=== PATIENT | female | born 1955 | race Caucasian/White ===

== ENCOUNTER 2018-08-26 03:57 | Inpatient (IN) | payer MEDICAID ==
[~2018-08-26] VITALS: Ht 157.5 cm; Wt 135.0 kg
--- NOTE | ~2018-08-26 | MORECARE ---
CASE MANAGEMENT DISCHARGE SUMMARY PATIENT: AMISHA CORTEZ UNIT: [id number] ADM DATE: 08/26/18 AGE: 62 : 55 SEX: F ROOM/BED: D.7483 AUTHOR: RICKDOC PHYSICIAN: REFERRING PHYSICIAN: MYRTLE MENG MD DATE OF SERVICE: 08/30/18 Discharge Plan Patient Name: AMISHA CORTEZ Facility: [facility]:[place] : 1955 Planned Disposition: Home with Home Health Anticipated Discharge Date: 08/29/18 Discharge Date: 08/29/2018 Expected LOS: 3 Initial Reviewer: [email or web address] Initial Review Date: 08/26/2018 Generated: 08/30/18 3:36 pm Comments DCP- Discharge Planning Updated by [email or web address]: Mojgan Ríos on 08/29/18 7:[address] Patient Name: AMISHA CORTEZ Admission Status: ER Accout number: [id number] Admission Date: 08-26-2018 : 1955 Admission Diagnosis:SHORTNESS OF BREATH Attending: MYRTLE MENG Current LOS: 3 Anticipated DC Date: 08-29-2018 Planned Disposition: Home with Home Health Primary Insurance: MEDICAID [place] Discharge Planning Comments: LATE ENTRY 1430 AILYN SPOKE WITH THE PATIENT. SHE GAVE PERMISSION TO SPEAK WITH HER DAUGHTER CIRA, WHEN SHE ARRIVED. THE FAMILY WANTS PATIENT TO GO TO ACUTE REHAB IN [place] AT [facility]. TC TO [place] AND SPOKE WITH BERTRAM. ADMISSION'S PERSON IS NOT AVAILABLE TODAY. PATIENT HAS MEDICAID. MEDICAID DOES NOT COVER ACUTE REHAB . PATIENT HAS PORTABLE OXYGEN AT HOME AND STATIONARY UNIT.SHE LIVES IN [place], [place]. THE DAUGHTER LIVES IN [place]. CM SPOKE WITH THE DTR ON HER ARRIVAL. EXPLAINED COVERAGE W/ MEDICAID. THEY DO NOT WANT TO CONSIDER A SKILLED FACILITY FOR REHAB. PATIENT AND FAMILY DECIDED ON HOME W/ HOME HEALTH. PATIENT HAS ASSISTED LIVING ADMINISTRATOR ASSISTANCE 3 DAYS A WEEK FROM [facility]. WILL NEED TO CONTACT IN THE AM TO HAVE THEM GET AN ORDER FROM [facility] FOR H/H SERVICES. PATIENT STATES SHE HAS HAD PHYSICAL THERAPY WITH THEM PREVIOUSLY. [facility] IS THE DME PROVIDER FOR HOME O2 UNITS AND SUPPLIES. PATIENT WILL BE DISCHARGE TO HOME VIA AMBULANCE. SHE CANNOT COMFORTABLE TRANSPORT IN SITTING POSITION FOR 2.5- 3 HRS. SHE HAS NASAL OXYGEN AT 3-4 LITERS VIA N/C. PCS FORM COMPLETED. TC TO [employer] TO ADVISE OF OUT OF TOWN TRANSPORT. JUAN PRIMARY NURSE PROVIDED [facility]/ [facility] TO CALL WHEN THE PATIENT IS READY TO BE DISCHARGED. FAMILY AT THE BEDSIDE AWAITING DISCHARGE INSTRUCTIONS. WHEN DTR ARRIVED, SHE STATED THE PATIENT LIVED ALONE. SHE HAD BEEN STAYING WITH THE DAUGHTER WHEN SHE WAS AIRFLIGHTED TO [facility]. Salesperson Furniture: Mojgan Ríos DCPIA - Discharge Planning Initial Assessment Updated by [email or web address]: Mojgan Ríos on 08/29/18 7:57 pm * Is the patient Alert and Oriented? Yes * PCP [facility] * Pharmacy [facility] * Preadmission Environment Home Alone * ADLs Partial Dependent * Partial ADLs (Assistance needed) Bathing Dressing * Equipment Oxygen * List name and contact numbers for known caregivers / representatives who currently or will assist patient after discharge: LUCÍA CORTEZ- [phone] * Verbal permission to speak to the caregivers and representatives has been obtained from the patient. Yes * Community resources currently utilized Home Health * Please name any agencies selected above. HAS ASSISTED LIVING ADMINISTRATOR SERVICES W/ [facility] * Additional services required to return to the preadmission environment? Yes * Can the patient safely return to the preadmission environment? Yes * Has this patient been hospitalized within the prior 30 days at any hospital? Yes Last DP export: 08/30/18 8:14 Patient Name: AMISHA CORTEZ Page 32884 at 1436 All edits/amendments must be made on the electronic document DICTATION DATE: 08/30/18 1435 SPECIALTY TRANSFORMER ASSEMBLER: JIMENA 08/30/18 1435 RPT#: [id number] DC DATE:08/29/18 STATUS: DIS IN [facility] [address] [place] [address] END OF REPORT
--- NOTE | ~2018-08-26 | MORECARE ---
CASE MANAGEMENT DISCHARGE SUMMARY PATIENT: AMISHA CORTEZ UNIT: [id number] ADM DATE: 08/26/18 AGE: 62 : 55 SEX: F ROOM/BED: D.0 AUTHOR: MIGUEL CABRERA PHYSICIAN: REFERRING PHYSICIAN: MYRTLE MENG MD DATE OF SERVICE: 08/29/18 Discharge Plan Patient Name: AMISHA CORTEZ Facility: [facility]:[place] : 1955 Planned Disposition: Home with Home Health Anticipated Discharge Date: 08/29/18 Discharge Date: 08/29/2018 Expected LOS: 3 Initial Reviewer: [email or web address] Initial Review Date: 08/26/2018 Generated: 08/29/18 9:00 pm DCPIA - Discharge Planning Initial Assessment Updated by [id number]: Mojgan Ríos on 08/29/18 7:57 pm * Is the patient Alert and Oriented? Yes * PCP [facility] * Pharmacy [facility] * Preadmission Environment Home Alone * ADLs Partial Dependent * Partial ADLs (Assistance needed) Bathing Dressing * Equipment Oxygen * List name and contact numbers for known caregivers / representatives who currently or will assist patient after discharge: LUCÍA CORTEZ- [phone] * Verbal permission to speak to the caregivers and representatives has been obtained from the patient. Yes * Community resources currently utilized Home Health * Please name any agencies selected above. HAS WOODWORKING SHOP HAND SERVICES W/ [facility] * Additional services required to return to the preadmission environment? Yes * Can the patient safely return to the preadmission environment? Yes * Has this patient been hospitalized within the prior 30 days at any hospital? Yes Last DP export: 08/29/18 6:48 Patient Name: AMISHA OCRTEZ Page 55415 at 2000 All edits/amendments must be made on the electronic document DICTATION DATE: 08/29/181999 ATOMIC PHYSICS PROFESSOR: JIMENA 08/29/181999 RPT#: [id number] DC DATE:08/29/18 STATUS: DIS IN [facility] [address] [place] [address] END OF REPORT
--- NOTE | ~2018-08-26 | MORECARE ---
CASE MANAGEMENT DISCHARGE SUMMARY PATIENT: AMISHA CORTEZ UNIT: [id number] ADM DATE: 08/26/18 AGE: 62 : 55 SEX: F ROOM/BED: D.6434 AUTHOR: RICKDOC PHYSICIAN: REFERRING PHYSICIAN: MYRTLE MENG MD DATE OF SERVICE: 08/29/18 Discharge Plan Patient Name: AMISHA CORTEZ Facility: [facility]:[place] : 1955 Planned Disposition: Home with Home Health Anticipated Discharge Date: 08/29/18 Discharge Date: 08/29/2018 Expected LOS: 3 Initial Reviewer: [email or web address] Initial Review Date: 08/26/2018 Generated: 08/29/18 9:19 pm Comments DCP- Discharge Planning Updated by [email or web address]: Mojgan Ríos on 08/29/18 7:[address] Patient Name: AMISHA CORTEZ Admission Status: ER Accout number: [id number] Admission Date: 08-26-2018 : 1955 Admission Diagnosis:SHORTNESS OF BREATH Attending: MYRTLE MENG Current LOS: 3 Anticipated DC Date: 08-29-2018 Planned Disposition: Home with Home Health Primary Insurance: MEDICAID [place] Discharge Planning Comments: LATE ENTRY 1430 AILYN SPOKE WITH THE PATIENT. SHE GAVE PERMISSION TO SPEAK WITH HER DAUGHTER CIRA, WHEN SHE ARRIVED. THE FAMILY WANTS PATIENT TO GO TO ACUTE REHAB IN [place] AT [facility]. TC TO [place] AND SPOKE WITH BERTRAM. ADMISSION'S PERSON IS NOT AVAILABLE TODAY. PATIENT HAS MEDICAID. MEDICAID DOES NOT COVER ACUTE REHAB . PATIENT HAS PORTABLE OXYGEN AT HOME AND STATIONARY UNIT.SHE LIVES IN [place], [place]. THE DAUGHTER LIVES IN [place]. CM SPOKE WITH THE DTR ON HER ARRIVAL. EXPLAINED COVERAGE W/ MEDICAID. THEY DO NOT WANT TO CONSIDER A SKILLED FACILITY FOR REHAB. PATIENT AND FAMILY DECIDED ON HOME W/ HOME HEALTH. PATIENT HAS ARCHITECTURAL DESIGNER ASSISTANCE 3 DAYS A WEEK FROM [facility]. WILL NEED TO CONTACT IN THE AM TO HAVE THEM GET AN ORDER FROM [facility] FOR H/H SERVICES. PATIENT STATES SHE HAS HAD PHYSICAL THERAPY WITH THEM PREVIOUSLY. [facility] IS THE DME PROVIDER FOR HOME O2 UNITS AND SUPPLIES. PATIENT WILL BE DISCHARGE TO HOME VIA AMBULANCE. SHE CANNOT COMFORTABLE TRANSPORT IN SITTING POSITION FOR 2.5- 3 HRS. SHE HAS NASAL OXYGEN AT 3-4 LITERS VIA N/C. PCS FORM COMPLETED. TC TO [email or web address] TO ADVISE OF OUT OF TOWN TRANSPORT. JUAN PRIMARY NURSE PROVIDED W/ [facility] NUMBER TO CALL WHEN THE PATIENT IS READY TO BE DISCHARGED. FAMILY AT THE BEDSIDE AWAITING DISCHARGE INSTRUCTIONS. WHEN DTR ARRIVED, SHE STATED THE PATIENT LIVED ALONE. SHE HAD BEEN STAYING WITH THE DAUGHTER WHEN SHE WAS AIRFLIGHTED TO [facility]. Account Assistant: Mojgan Ríos DCPIA - Discharge Planning Initial Assessment Updated by [email or web address]: Mojgan Ríos on 08/29/18 7:57 pm * Is the patient Alert and Oriented? Yes * PCP [facility] * Pharmacy [facility] * Preadmission Environment Home Alone * ADLs Partial Dependent * Partial ADLs (Assistance needed) Bathing Dressing * Equipment Oxygen * List name and contact numbers for known caregivers / representatives who currently or will assist patient after discharge: LUCÍA CORTEZ- [phone] * Verbal permission to speak to the caregivers and representatives has been obtained from the patient. Yes * Community resources currently utilized Home Health * Please name any agencies selected above. HAS ARCHITECTURAL DESIGNER SERVICES W/ [facility] * Additional services required to return to the preadmission environment? Yes * Can the patient safely return to the preadmission environment? Yes * Has this patient been hospitalized within the prior 30 days at any hospital? Yes Last DP export: 08/29/18 7:00 Patient Name: AMISHA CORTEZ Page 52742 at 2019 All edits/amendments must be made on the electronic document DICTATION DATE: 08/29/18 2018 MORTGAGE ORIGINATOR: JIMENA 08/29/18 2018 RPT#: [id number] DC DATE:08/29/18 STATUS: DIS IN [facility] [address] [place] [address] END OF REPORT
--- NOTE | ~2018-08-26 | MORECARE ---
CASE MANAGEMENT DISCHARGE SUMMARY PATIENT: AMISHA CORTEZ UNIT: [id number] ADM DATE: 08/26/18 AGE: 62 : 55 SEX: F ROOM/BED: D.2120 AUTHOR: MIGUEL CABRERA PHYSICIAN: REFERRING PHYSICIAN: MYRTLE MENG MD DATE OF SERVICE: 08/29/18 Discharge Plan Patient Name: AMISHA CORTEZ [facility] [facility] 1955 Planned Disposition: Home with Home Health Anticipated Discharge Date: 08/29/18 Discharge Date: 08/29/2018 Expected LOS: 3 Initial Reviewer: [email or web address] Initial Review Date: 08/26/2018 Generated: 08/29/18 8:48 pm Patient Name: AMISHA CORTEZ Page 27833 at 1948 All edits/amendments must be made on the electronic document DICTATION DATE: 08/29/181946 SUPERVISOR INSULATION: JIMENA 08/29/181946 RPT#: [id number] DC DATE:08/29/18 STATUS: DIS IN [facility] [address] [place] [address] END OF REPORT
--- NOTE | ~2018-08-26 | MORECARE ---
CASE MANAGEMENT DISCHARGE SUMMARY PATIENT: AMISHA CORTEZ UNIT: [id number] ADM DATE: 08/26/18 AGE: 62 : 55 SEX: F ROOM/BED: D.7589 AUTHOR: RICKDOC PHYSICIAN: REFERRING PHYSICIAN: MYRTLE MENG MD DATE OF SERVICE: 08/30/18 Discharge Plan Patient Name: AMISHA CORTEZ Facility: [facility]:[place] : 1955 Planned Disposition: Home with Home Health Anticipated Discharge Date: 08/29/18 Discharge Date: 08/29/2018 Expected LOS: 3 Initial Reviewer: [email or web address] Initial Review Date: 08/26/2018 Generated: 08/30/18 10:14 am Comments DCP- Discharge Planning Updated by [email or web address]: Mojgan Ríos on 08/29/18 7:[address] Patient Name: AMISHA CORTEZ Admission Status: ER Accout number: [id number] Admission Date: 08-26-2018 : 1955 Admission Diagnosis:SHORTNESS OF BREATH Attending: MYRTLE MENG Current LOS: 3 Anticipated DC Date: 08-29-2018 Planned Disposition: Home with Home Health Primary Insurance: MEDICAID [place] Discharge Planning Comments: LATE ENTRY 1430 AILYN SPOKE WITH THE PATIENT. SHE GAVE PERMISSION TO SPEAK WITH HER DAUGHTER CIRA, WHEN SHE ARRIVED. THE FAMILY WANTS PATIENT TO GO TO ACUTE REHAB IN [place] AT [facility]. TC TO [place] AND SPOKE WITH BERTRAM. ADMISSION'S PERSON IS NOT AVAILABLE TODAY. PATIENT HAS MEDICAID. MEDICAID DOES NOT COVER ACUTE REHAB . PATIENT HAS PORTABLE OXYGEN AT HOME AND STATIONARY UNIT.SHE LIVES IN [place], [place]. THE DAUGHTER LIVES IN [place]. CM SPOKE WITH THE DTR ON HER ARRIVAL. EXPLAINED COVERAGE W/ MEDICAID. THEY DO NOT WANT TO CONSIDER A SKILLED FACILITY FOR REHAB. PATIENT AND FAMILY DECIDED ON HOME W/ HOME HEALTH. PATIENT HAS MEDICAL RECORDS MANAGER ASSISTANCE 3 DAYS A WEEK FROM [facility]. WILL NEED TO CONTACT IN THE AM TO HAVE THEM GET AN ORDER FROM [facility] FOR H/H SERVICES. PATIENT STATES SHE HAS HAD PHYSICAL THERAPY WITH THEM PREVIOUSLY. [facility] IS THE DME PROVIDER FOR HOME O2 UNITS AND SUPPLIES. PATIENT WILL BE DISCHARGE TO HOME VIA AMBULANCE. SHE CANNOT COMFORTABLE TRANSPORT IN SITTING POSITION FOR 2.5- 3 HRS. SHE HAS NASAL OXYGEN AT 3-4 LITERS VIA N/C. PCS FORM COMPLETED. TC TO [employer] TO ADVISE OF OUT OF TOWN TRANSPORT. JUAN PRIMARY NURSE PROVIDED W/ [facility] NUMBER TO CALL WHEN THE PATIENT IS READY TO BE DISCHARGED. FAMILY AT THE BEDSIDE AWAITING DISCHARGE INSTRUCTIONS. WHEN DTR ARRIVED, SHE STATED THE PATIENT LIVED ALONE. SHE HAD BEEN STAYING WITH THE DAUGHTER WHEN SHE WAS AIRFLIGHTED TO [facility]. Freelance Art Director: Mojgan Ríos DCPIA - Discharge Planning Initial Assessment Updated by [email or web address]: Mojgan Ríos on 08/29/18 7:57 pm * Is the patient Alert and Oriented? Yes * PCP [facility] * Pharmacy [facility] * Preadmission Environment Home Alone * ADLs Partial Dependent * Partial ADLs (Assistance needed) Bathing Dressing * Equipment Oxygen * List name and contact numbers for known caregivers / representatives who currently or will assist patient after discharge: LUCÍA CORTEZ- [phone] * Verbal permission to speak to the caregivers and representatives has been obtained from the patient. Yes * Community resources currently utilized Home Health * Please name any agencies selected above. HAS MEDICAL RECORDS MANAGER SERVICES W/ [facility] * Additional services required to return to the preadmission environment? Yes * Can the patient safely return to the preadmission environment? Yes * Has this patient been hospitalized within the prior 30 days at any hospital? Yes Last DP export: 08/29/18 7:19 Patient Name: AMISHA CORTEZ Page 67781 at 0914 All edits/amendments must be made on the electronic document DICTATION DATE: 08/30/18912 COLLEGE DIRECTOR: JIMENA 08/30/18912 RPT#: [id number] DC DATE:08/29/18 STATUS: DIS IN [facility] [address] [place] [address] END OF REPORT
[2018-08-26] MEDS ORDERED: MYSOLINE 50 MG50 MG PO (04:04)
[2018-08-26] MEDS ORDERED: CELEBREX200 MG (04:04)
[2018-08-26] MEDS ORDERED: BAYER CHEWABLE81 MG PO (04:04)
[2018-08-26] MEDS ORDERED: VITAMIN B-121000 MCG IM (04:05)
[2018-08-26] MEDS ORDERED: GLYBURIDE5 M1 PO (04:06)
[2018-08-26] MEDS ORDERED: CELEXA20 MG PO (04:06)
[2018-08-26] MEDS ORDERED: NEURONTIN 300300 MG PO (04:06)
[2018-08-26] MEDS ORDERED: CYCLOBENZAPRINE10 MG PO (04:06)
[2018-08-26] MEDS ORDERED: NORCO 10-325 TA1 TAB PO (04:07)
[2018-08-26] MEDS ORDERED: ZESTRIL40 MG PO (04:07)
[2018-08-26] MEDS ORDERED: HUMULIN R100 U/ML SC (04:07)
[2018-08-26] MEDS ORDERED: SINGULAIR10 MG PO (04:08)
[2018-08-26] MEDS ORDERED: K-DUR20 MEQ PO (04:08)
[2018-08-26] MEDS ORDERED: LASIX40 MG PO (04:08)
[2018-08-26] MEDS ORDERED: ZOCOR5 MG (04:09)
[2018-08-26] MEDS ORDERED: ALBUTEROL SULF8.5 GM INH (04:09)
[2018-08-26] MEDS ORDERED: CEFUROXIME500 MG PO (04:10)
[2018-08-26] MEDS ORDERED: METOPROLOL TART25 MG PO (04:10)
[2018-08-26] MEDS ORDERED: NORVASC5 MG PO (04:10)
[2018-08-26] MEDS ORDERED: MONODOX100 MG PO (04:11)
[2018-08-26] MEDS ORDERED: ABILIFY10 MG PO (04:11)
[2018-08-26] MEDS ORDERED: METOLAZONE2.5 MG PO (04:11)
[2018-08-26 06:14] VITALS: BP 109/58
[2018-08-26 06:22] VITALS: BMI 53.5
[2018-08-26 07:49] VITALS: BP 104/74
[2018-08-26 11:33] VITALS: BP 112/57
[2018-08-26 12:08] LABS: HEMATOCRIT 35.1 % (36.0-48.0); HEMOGLOBIN 10.9 g/dL (12-16); MCH 27.3 pg (26.0-34.0); MCHC 31.1 g/dL (31.0-37.0); MCV 87.8 fL (80.0-100.0); MEAN PLATELET VOLUME 9.6 fL (7.4-10.4); PLATELET COUNT 189 10x3/uL (130-400); RDW 15.4 % (11.5-14.5); WBC 8.1 10x3/uL (4.8-10.8)
[2018-08-26 12:13] LABS: BASOPHILS 0 % (0-2); EOSINOPHILS 0.1 % (0-7); IMMATURE GRANULOCYTES 0.1 % (0-5); LYMPHOCYTES 4.7 % (15-50); MONOCYTES 0.6 % (2-11); NEUTROPHILS 94.5 % (40-80)
[2018-08-26 12:32] LABS: ALBUMIN 3.2 g/dL (3.4-5.0); ANION GAP 11.6 mmol/L (8-16); BILIRUBIN - TOTAL 0.75 mg/dL (0.2-1.3); CALCIUM 8.8 mg/dL (8.5-10.1); CARBON DIOXIDE 31.8 mmol/L (21.0-32.0); CREATININE - SERUM 1.2 mg/dL (0.6-1.3); MAGNESIUM - SERUM 2.2 mg/dL (1.8-2.4); POTASSIUM - SERUM 4.4 mmol/L (3.5-5.1); PROTEIN - SERUM 8.2 g/dL (6.4-8.2)
[2018-08-26 12:42] LABS: APTT 30.9 SECONDS (22.8-39.4); INR 1.09 (0.85-1.17); PROTIME 13.7 SECONDS (11.6-15.0)
[2018-08-26 12:43] LABS: D-DIMER-QUANTITATIVE 1.31 ug/mLFEU (0.20-0.54)
[2018-08-26 13:00] VITALS: Ht 157.5 cm; Wt 135.0 kg
[2018-08-26 13:39] LABS: % SATURATION 7 % (15-55); IRON 30 ug/dl (35-150); TOTAL IRON BIND CAPACITY 406 ug/dl (260-445); UNSAT IRON BIND CAPACITY 376 ug/dl (150-375)
[2018-08-26 15:57] VITALS: BP 107/51
[2018-08-26 20:52] VITALS: BP 110/58
[2018-08-27] VITALS: BP 108/44
[2018-08-27 04:00] VITALS: BP 95/53
[2018-08-27 07:23] LABS: APPEARANCE CLEAR (CLEAR); BILIRUBIN NEGATIVE (NEGATIVE); COLOR YELLOW (YELLOW); EPITHELIAL CELLS 0-5 /hpf (0-5); GLUCOSE NEGATIVE (NEGATIVE); KETONE NEGATIVE (NEGATIVE); NITRITE NEGATIVE (NEGATIVE); PROTEIN NEGATIVE (NEGATIVE); RED CELLS - URINE 0-5 /hpf (0-5); SPECIFIC GRAVITY 1.015 (1.005-1.020); UROBILINOGEN NORMAL (NORMAL); WHITE CELLS - URINE NSEEN /hpf (0-5)
[2018-08-27 07:31] LABS: FOLATE (FOLIC ACID) - SERUM >20.0 ng/mL (>3.0)
[2018-08-27 09:00] VITALS: BP 97/36
[2018-08-27 13:29] VITALS: BP 119/59
[2018-08-27 16:06] VITALS: BP 113/47
[2018-08-27 21:22] VITALS: BP 102/52
[2018-08-28 02:11] VITALS: BP 109/64
[2018-08-28 06:09] LABS: BASOPHILS 0.3 % (0-2); EOSINOPHILS 1.6 % (0-7); HEMATOCRIT 32.9 % (36.0-48.0); HEMOGLOBIN 10.2 g/dL (12-16); IMMATURE GRANULOCYTES 0.2 % (0-5); MCH 27.5 pg (26.0-34.0); MCV 88.7 fL (80.0-100.0); MEAN PLATELET VOLUME 10.4 fL (7.4-10.4); MONOCYTES 10.9 % (2-11); PLATELET COUNT 222 10x3/uL (130-400); RBC 3.71 10x6/uL (4.00-5.40); RDW 15.9 % (11.5-14.5)
[2018-08-28 06:25] LABS: WBC 10.2 10x3/uL (4.8-10.8)
[2018-08-28 06:27] LABS: ANION GAP 8.7 mmol/L (8-16); C-REACTIVE PROTEIN 2.5 mg/dL (0.0-0.9); CALCIUM 8.4 mg/dL (8.5-10.1); CARBON DIOXIDE 36.3 mmol/L (21.0-32.0); CREATININE - SERUM 1.1 mg/dL (0.6-1.3); MAGNESIUM - SERUM 2.2 mg/dL (1.8-2.4); PHOSPHOROUS 4.5 mg/dL (2.5-4.9)
[2018-08-28 06:40] VITALS: BP 110/55
[2018-08-28 08:53] VITALS: BP 121/102
[2018-08-28 12:10] VITALS: BP 122/57
[2018-08-28 15:38] VITALS: BP 115/98
[2018-08-28 20:30] VITALS: BP 111/50
[2018-08-29 00:30] VITALS: BP 118/64
[2018-08-29 04:30] VITALS: BP 94/50
[2018-08-29 05:59] LABS: ANION GAP 6.2 mmol/L (8-16); CALCIUM 8.6 mg/dL (8.5-10.1); CARBON DIOXIDE 37.5 mmol/L (21.0-32.0); CREATININE - SERUM 1.1 mg/dL (0.6-1.3); POTASSIUM - SERUM 3.7 mmol/L (3.5-5.1)
[2018-08-29 06:07] LABS: BASOPHILS 0.3 % (0-2); EOSINOPHILS 5.1 % (0-7); HEMOGLOBIN 11.1 g/dL (12-16); IMMATURE GRANULOCYTES 0.1 % (0-5); LYMPHOCYTES 17.3 % (15-50); MCH 27.3 pg (26.0-34.0); MCHC 30.8 g/dL (31.0-37.0); MCV 88.5 fL (80.0-100.0); MONOCYTES 10.8 % (2-11); NEUTROPHILS 66.4 % (40-80); PLATELET COUNT 252 10x3/uL (130-400); RBC 4.07 10x6/uL (4.00-5.40); RDW 15.9 % (11.5-14.5)
[2018-08-29 06:10] LABS: WBC 7.1 10x3/uL (4.8-10.8)
[2018-08-29 07:59] VITALS: BP 105/60
[2018-08-29] MEDS ORDERED: LISINOPRIL10 MG PO (10:47)
[2018-08-29] MEDS ORDERED: VIBRAMYCIN 100100 MG PO (10:47)
[2018-08-30 12:12] LABS: IMMUNOGLOBULIN A 174 mg/dL (87-352); IMMUNOGLOBULIN G 1420 mg/dL (700-1600)
[2018-08-30 14:18] LABS: ANA REFLEX - DIRECT Negative (Negative)
[2018-09-01 03:11] LABS: MYCOPLASMA PNEUMO IGG 644 U/mL (0-99)
[2018-09-01 15:25] LABS: ANCA - ANTIMYELOPEROXIDASE <9.0 U/mL (0.0-9.0); ANCA - ANTIPROTEINASE 3 <3.5 U/mL (0.0-3.5); ANCA - ATYPICAL <1:20 titer (Neg:<1:20); ANCA - CYTOPLASMIC <1:20 titer (Neg:<1:20); ANCA - PERINUCLEAR <1:20 titer (Neg:<1:20)
[2018-09-01 21:08] LABS: IMMUNOGLOBULIN E 371 IU/mL (0-100)
== END 2018-08-29 16:04 | disposition home health service (06) | DRG 291 ==
LOC: EDBD 03:57 → D.ER 03:57 → D.M2 04:28 → D.EDHOLD 04:28 → D.M2 05:50
PROVIDERS: Internal Medicine Nephrology; Internal Medicine Pulmonary Disease
PROC: 5A09457 Assistance with Respiratory Ventilation, 24-96 Consecutive Hours, Continuous Positive Airway Pressure (ICD-10-PCS; principal; 2018-08-26)
DX: I11.0 Hypertensive heart disease with heart failure (principal); J18.9 Pneumonia, unspecified organism; J96.22 Acute and chronic respiratory failure with hypercapnia; J96.21 Acute and chronic respiratory failure with hypoxia; I50.31 Acute diastolic (congestive) heart failure; J44.0 Chronic obstructive pulmonary disease with (acute) lower respiratory infection; J44.1 Chronic obstructive pulmonary disease with (acute) exacerbation; J98.11 Atelectasis; N17.9 Acute kidney failure, unspecified; Z68.43 Body mass index [BMI] 50.0-59.9, adult; E78.5 Hyperlipidemia, unspecified; E11.9 Type 2 diabetes mellitus without complications; F32.9 Major depressive disorder, single episode, unspecified; J30.9 Allergic rhinitis, unspecified; G25.0 Essential tremor; D64.9 Anemia, unspecified; E66.01 Morbid (severe) obesity due to excess calories; G47.33 Obstructive sleep apnea (adult) (pediatric); Z87.891 Personal history of nicotine dependence

== ENCOUNTER 2019-04-12 15:48 | Inpatient (IN) | payer MEDICAID ==
[~2019-04-12] VITALS: Ht 157.5 cm; Wt 120.7 kg
--- NOTE | ~2019-04-12 | ST ---
PATIENT:AMISHA CORTEZ MEDICAL RECORD: [id number] SEX: F LOCATION:D. D212 ORDER #: ADMISSION DATE: 04/12/19 AGE OF PATIENT: 63 REFERRING PHYSICIAN: INTERPRETING PHYSICIAN: THANIA MAY MD DATE OF SERVICE: 04/13/2019 Nuclear Stress Test INDICATION: Angina and coronary artery disease. PROCEDURE: The patient was exercised on standard Lexiscan protocol with 33 mCi of sestamibi injected at peak stress, 13 mCi were then used previously for rest images. FINDINGS: Gated SPECT reveals a preserved ejection fraction of 58%. However, there is decreased thickening and brightening throughout the apical segments. SPECT imaging Cardiolite was used as myocardial perfusion agent. There is a fixed perfusion defect at the apex. However, there is no reversibility of the remaining segments with homogeneous uptake at rest and stress. OVERALL IMPRESSION: This is minimally abnormal nuclear stress test, only showing a fixed perfusion defect at the apex. No reversible ischemia. Preserved ejection fraction of 58%. Center medical management on treatment of the dysrhythmia. TRANSINT:[id number] Voice Confirmation ID: [id number] DOCUMENT ID: [id number] THANIA MAY MD CC: [id number] DICTATION DATE: 04/13/19 1239 LINUX SERVER ADMINISTRATOR: 04/14/19 0514 DIS IN 04/13/19 [facility] [address] [place] [id number]
--- NOTE | ~2019-04-12 | DS ---
PATIENT:AMISHA HOLMAN :55 MEDICAL RECORD: [id number] DISCHARGE SUMMARY ADMISSION DATE: 04/12/19 DISCHARGE DATE: 04/13/19 DATE OF SERVICE: 04/13/2019. DISCHARGE DIAGNOSES: 1. Paroxysmal atrial fibrillation. 2. Hyperlipidemia. 3. Insulin-dependent diabetes. 4. Shortness of breath, dyspnea on exertion. HOSPITAL COURSE: Mrs. Holman presents with atrial fibrillation. She was admitted from the office, underwent cardiac workup. Echocardiogram was with normal ejection fraction. She did have mild mitral regurgitation, left atrial enlargement. She as well had a nuclear stress test that was overall normal. She was started on sotalol. With the sotalol, she had no further atrial fibrillation. Discharged home to continue the sotalol, discontinue the digoxin. We will follow up with her in approximately 1 month. TRANSINT:[id number] Voice Confirmation ID: [id number] DOCUMENT ID: [id number] THANIA MAY MD CC: [id number] DICTATION DATE: 04/13/191705 POLITICAL ANTHROPOLOGIST: 04/14/19 0914 DIS IN 04/13/19 [facility] [address] [place] [address]
[~2019-04-12 15:48] MED LIST: ABILIFY10 MG PO; ALBUTEROL SULF8.5 GM INH; BAYER CHEWABLE81 MG PO; CEFUROXIME500 MG PO; CELEBREX200 MG; CELEXA20 MG PO; CYCLOBENZAPRINE10 MG PO; GLYBURIDE5 M1 PO; HUMULIN R100 U/ML SC; K-DUR20 MEQ PO; LASIX40 MG PO; LISINOPRIL10 MG PO; METOLAZONE2.5 MG PO; METOPROLOL TART25 MG PO; MONODOX100 MG PO; MYSOLINE 50 MG50 MG PO; NEURONTIN 300300 MG PO; NORCO 10-325 TA1 TAB PO; NORVASC5 MG PO; SINGULAIR10 MG PO; VIBRAMYCIN 100100 MG PO; VITAMIN B-121000 MCG IM; ZESTRIL40 MG PO; ZOCOR5 MG
--- NOTE | 2019-04-12 16:20 | NUR ---
PATIENT FOUND SITTING IN ROOM AT 1620. PATIENT STATES SHE ARRIVED TO ROOM ABOUT 1610. PATIENT WAS A DIRECT ADMIT FROM OFFICE. NO IV ACCESS. PATIENT STATES THAT SHE WEARS HOME OXYGEN AT NIGHT 1L/NC, NO OXYGEN DURING THE DAY. AWAITING FOR OFFICE TO FAX OVER PATIENTS MEDICATION LIST. PATIENT ORIENTED TO ROOM. CALL LIGHT WIHTIN REACH. NO DISTRESS AT THIS TIME.
--- NOTE | 2019-04-12 17:00 | NUR ---
20 GAUGE IV PLACED TO RIGHT HAND X 1 STICK VIA SLIVER LAPPER, FROYLAN ARNETT. GOOD BLOOD RETURN, EASY FLUSH. TOLERATED IV PLACEMENT WELL. TAPED, DATED AND SECURED.
[2019-04-12 17:23] LABS: BASOPHILS 0.3 % (0-2); EOSINOPHILS 3.4 % (0-7); HEMATOCRIT 41.3 % (36.0-48.0); HEMOGLOBIN 13.5 g/dL (12-16); IMMATURE GRANULOCYTES 0.1 % (0-5); LYMPHOCYTES 18.5 % (15-50); MCH 29.2 pg (26.0-34.0); MCHC 32.7 g/dL (31.0-37.0); MCV 89.2 fL (80.0-100.0); MEAN PLATELET VOLUME 9.8 fL (7.4-10.4); NEUTROPHILS 69.7 % (40-80); RBC 4.63 10x6/uL (4.00-5.40); RDW 14.5 % (11.5-14.5); WBC 7.7 10x3/uL (4.8-10.8)
[2019-04-12 17:44] LABS: PLATELET COUNT 201 10x3/uL (130-400)
[2019-04-12 17:49] LABS: CALC OSMOLALITY 282 mosm/kg (275-300); CALCIUM 9.2 mg/dL (8.5-10.1); CARBON DIOXIDE 30.1 mmol/L (21.0-32.0); CHLORIDE - SERUM 104 mmol/L (98-107); GLUCOSE 112 mg/dL (74-106); POTASSIUM - SERUM 4.5 mmol/L (3.5-5.1); SODIUM 140 mmol/L (136-145); UREA NITROGEN 22 mg/dL (7-18); eGFR NON AFRICAN AMERICAN 59 mL/min (90-120)
[2019-04-12 17:57] LABS: TROPONIN-I < 0.017 ng/mL (0.000-0.060)
--- NOTE | 2019-04-12 18:25 | NUR ---
ASSISTED PATIENT ON AND OFF OF BSC. PATIENT DAUGTHER AT BEDSIDE. CALL LIGHT WITHIN REACH. NO DISTRESS.
--- NOTE | 2019-04-12 19:30 | NUR ---
REPORT RECIEVED AND ROUNDING COMPLETE. PATIENT SITTING ON THE SIDE OF HER BED TALKING ON HER CALL PHONE PATIENT STATED SHE HAS NO NEEDS AT THIS TIME CALL LIGHT WITHIN REACH BED IN LOWEST POSITION.
[2019-04-12 19:32] VITALS: BP 126/66; BMI 48.8
[2019-04-12 20:00] VITALS: BP 143/69
--- NOTE | 2019-04-12 23:22 | NUR ---
I have reviewed this patient and I concur with the Shift Assessment completed by the Licensed Practical Nurse today this shift.
[2019-04-13] VITALS: BP 114/55
[2019-04-13 04:30] VITALS: BP 102/53
--- NOTE | 2019-04-13 04:56 | NUR ---
I have reviewed this patient and I concur with the Shift Assessment completed by the Licensed Practical Nurse today this shift.
--- NOTE | 2019-04-13 07:26 | NUR ---
ROUNDING DONE WITH PATIENT HAVING NO NEEDS VOICED. NPO STATUS FOR STRESS TEST TODAY. ON HEART MONITOR SHOWING SB, HR 55. ON ROOM AIR. RIGHT HAND PIV SEEN WITH SALINE LOCK. GLASSES ON. OBESE. BSC IS FULL OF URINE FROM LAST SHIFT, EMPTIED. [place] HAT PLACED IN [facility] TO MEASURE. GENERLAIZED EDEMA SEEN TO ALL EXTREMITIES. BILATERAL BOTTOM OF FEET SEEN WITH PSORISIS STATES PATIENT. WILL MONITOR.
--- NOTE | 2019-04-13 08:13 | NUR ---
0803-TO GET RESTING PHASE OF STRESS TEST DONE.
--- NOTE | 2019-04-13 08:38 | NUR ---
RETURNS FROM XRAY.
[2019-04-13 09:47] VITALS: BP 121/57
--- NOTE | 2019-04-13 10:38 | NUR ---
TO RADIOLOGY TO FINISH STRESS TEST.
--- NOTE | 2019-04-13 11:20 | NUR ---
RETURNS FROM RADIOLOGY AND CAN NOW EAT.
[2019-04-13 13:27] VITALS: Ht 157.5 cm; Wt 120.7 kg
--- NOTE | 2019-04-13 15:59 | NUR ---
REFUSED SCD'S SHE IS UP AND DOWN TO THE RESTROOM.
--- NOTE | 2019-04-13 16:21 | NUR ---
PATIENT HAD A SHORT RUN A A FLUTTER, BACK INTO [place]. I CALLED KATHI MONTES APN TO LET HER KNOW OF THIS AND THAT THE PATIENT IS ON BETAPACE AND DID RECEIVE THE DOSE TODAY. SHE STATES THAT IF THE PATIENT IS BACK IN [place] AND CAN GET HER DOSE OF BETAPCE TONIGHT, THEN JUST WATCH.
--- NOTE | 2019-04-13 17:02 | NUR ---
DR MAY IN TO SEE PATIENT. HE IS MADE AWARE OF THE A FLUTTER.
[2019-04-13 17:47] VITALS: BP 140/91
[2019-04-13] MEDS ORDERED: BETAPACE 80 MG80 MG PO (17:47)
[2019-04-13 17:56] VITALS: BP 114/70
[2019-04-13] MEDS ORDERED: LASIX40 MG PO (17:59)
--- NOTE | 2019-04-13 18:07 | EC ---
PATIENT:AMISHA CORTEZ DATE OF SERVICE: 04/12/19 SEX: F MEDICAL RECORD: [id number] DATE OF : [birth year] LOCATION:D.M2 D.212 AGE OF PATIENT: 63 ADMISSION DATE: 04/12/19 REFERRING PHYSICIAN: INTERPRETING PHYSICIAN: THANIA LEE MD ECHOCARDIOGRAM REPORT ECHO CHARGES 4 ECHO COMPLETE Date: 04/13/19 CLINICAL DIAGNOSIS: CHF/ANGINA ECHOCARDIOGRAPHIC MEASUREMENTS (adult normal given) AC root (d.<3.7cm) 3.0 cm LV Septum d (<1.2 cm> 1.1 cm Valve Excursion 1.3 cm LV Septum (systole) 1.4 cm Left Atria (s.<4.0cm> 3.9 cm LVPW d(<1.2cm) 1.4 cm RV (d.<2.3cm) 3.9 cm LVPW (sytole) 1.7 cm LV diastole(<5.6CM) 4.5 cm MV E-F(>70mm/sec) cm LV systole 2.8 cm LVOT Diameter cm MV exc.(>10mm) 2.0 cm Est.ejection fraction (50-75%) % DOPPLER: LVIT cm/sec A 65.0 cm/sec E 111 cm/sec LA cm/sec RVSP 19 mmHg LVOT 110 cm/sec AOP1/2T m/s Asc. Ao 181 cm/sec RVOT 94 cm/sec RA cm/sec PA 126 cm/sec AV Gradient Peak 13.11mmHg AV Mean 7.65 mmHg AV Area 1.7 cm MV Gradient Peak 7.17 mmHg MV Mean 1.80 mmHg MV Area cm COMMENTS: Senior Housekeeper: Deirdre RAIN Owner Manager: 1 Dr. Lee TAPE# PACS Pericardial Effusion N DATE OF SERVICE: 04/13/2019 FINDINGS: 1. Left ventricular chamber size is within normal limits. Left ventricular systolic function is normal. Overall ejection fraction is estimated at 55%. 2. Left atrium, right atrium, and right ventricular chamber size is within normal limits. 3. Valvular structures have normal structure and motion. 4. Doppler interrogation reveals no significant valvular insufficiency or stenosis. Pulmonary systolic pressure is estimated at 19 mmHg. ECHOCARDIOGRAM REPORT [id number] AMISHA CORTEZ 5. No evidence of pericardial effusion or left ventricular thrombus. TRANSINT:[id number] Voice Confirmation ID: [id number] DOCUMENT ID: [id number] THANIA LEE MD at 1807 CC: [id number] DICTATION DATE: 04/13/19 1624 SUPERVISORY FORESTER: 04/13/19 1720 ADM IN [address] [place] [id number]
--- NOTE | 2019-04-13 18:29 | MORECARE ---
CASE MANAGEMENT DISCHARGE SUMMARY PATIENT: AMISHA CORTEZ UNIT: [id number] ADM DATE: 04/12/19 AGE: 63 : 55 SEX: F ROOM/BED: D.2125 AUTHOR: MIGUEL CABRERA PHYSICIAN: REFERRING PHYSICIAN: THANIA MAY MD DATE OF SERVICE: 04/13/19 Discharge Plan Patient Name: AMISHA CORTEZ [facility] [facility] 1955 Planned Disposition: Home with Home Health Anticipated Discharge Date: 04/13/19 Discharge Date: Expected LOS: 1 Initial Reviewer: [email or web address] Initial Review Date: 04/12/2019 Generated: 04/13/19 7:29 pm DCPIA - Discharge Planning Initial Assessment Updated by [email or web address]: Mojgan Ríos on 04/13/19 6:27 pm * Is the patient Alert and Oriented? Yes * PCP Jessenia Robb in [place], [place] * Pharmacy [facility] in [place] * Preadmission Environment Home with Family * ADLs Partial Dependent * Partial ADLs (Assistance needed) Bathing Medication Management * Equipment Bedside Commode Cane Nebulizer Oxygen Rolling Walker Shower Chair Walker * Other Equipment Patient has DME from [employer] oxygen at night, walker, wheelchair, nebulizer, bedside commode * List name and contact numbers for known caregivers / representatives who currently or will assist patient after discharge: Kalani jonas * Verbal permission to speak to the caregivers and representatives has been obtained from the patient. Yes * Community resources currently utilized Home Health * Please name any agencies selected above. [facility] in [place] * Additional services required to return to the preadmission environment? Yes * Can the patient safely return to the preadmission environment? Yes * Has this patient been hospitalized within the prior 30 days at any hospital? No Patient Name: AMISHA CORTEZ Page 39938 at 1829 All edits/amendments must be made on the electronic document DICTATION DATE: 04/13/191827 RETURN CLERK: JIMENA 04/13/191827 RPT#: [id number] DC DATE: STATUS: ADM IN [facility] [address] [place] [address] END OF REPORT
--- NOTE | 2019-04-13 18:35 | NUR ---
VERBAL AND WRITTEN DISCHARGE INSTRUCTIONS GIVEN TO DAUGHTER AND PATIENT. PER FROYLAN CAMACHONUCLEAR EQUIPMENT RESEARCH ENGINEER I WAS ABLE TO GIVE THE PATIENT 1 BETAPACE TO BE TAKEN FOR EVENING DOSE THEY LIVE IN [place] AND THEIR PHARMACY WAS ALREADY CLOSED. [place] LOCK REMOVED WITH CATH TIP INTACT.
--- NOTE | 2019-04-13 18:43 | MORECARE ---
CASE MANAGEMENT DISCHARGE SUMMARY PATIENT: AMISHA CORTEZ UNIT: [id number] ADM DATE: 04/12/19 AGE: 63 : 55 SEX: F ROOM/BED: D.6496 AUTHOR: RICK,DOC PHYSICIAN: REFERRING PHYSICIAN: THANIA MAY MD DATE OF SERVICE: 04/13/19 Discharge Plan Patient Name: AMISHA CORTEZ Facility: [facility]:[place] : 1955 Planned Disposition: Home with Home Health Anticipated Discharge Date: 04/13/19 Discharge Date: 04/13/2019 Expected LOS: 1 Initial Reviewer: [email or web address] Initial Review Date: 04/12/2019 Generated: 04/13/19 7:43 pm Comments DCP- Discharge Planning Updated by [email or web address]: Mojgan Ríos on 04/13/19 5:[address] 1800 CM ADVISED THAT THE PATIENT WAS BEING DISCHARGED TO HOME W/ HER DAUGHTER THIS PM. DISCHARGE PAPERWORK IS BEING PREPARED. CM WENT TO THE ROOM. PATIENT WAS IN THE BATHROOM. SHE ALLOWED THE CM TO SPEAK WITH HER DAUGHTER. THE DAUGHTER, KALANI, STATES HER MOTHER LIVES WITH HER IN [place]. SHE IS PROVIDING TRANSPORTATION TO HOME. CM ASK IF SHE WAS RECEIVING ANY HOME HEALTH SERVICES. THE DAUGHTER STATES SHE HAS [facility] FOR SERVICES. SHE WAS RECEIVING A HOME HEALTH AIDE FROM [facility] BUT THE DAUGHTER JUST COMPLETED THE PAPERWORK FOR A BINDERY MACHINE TENDER [facility] ON [address]. PATIENT HAS DME FROM [facility] [place], WALKER, WHEELCHAIR, NEBULIZER PCP- [facility]WOOD IN [facility] IN [place] CM OBTAINED SIGNATURE FOR HOME HEALTH TO CONTINUE W/ [facility] IN [place]. ONE SIGNED COPY TO THE DAUGHTER AND ONE SIGNED COPY TO THE HARD COVER CHART. THE ECHO REPORT IS THE ONLY MD NOTE AT THIS TIME.PATIENT WAS A DIRECT ADMIT. CM WILL CONTACT [facility] IN THE AM AND FAX DISCHARGE PAPERWORK. THE ONLY QUESTION THE DAUGHTER HAD WAS WHETHER HER MOTHER SHOULD CONTINUE THE FLUID RESTRICTION. THE NURSE DID NOT KNOW. CM ADVISED THE DTR TO ASK THE MD WHEN SHE CALLS FOR THE F/U APPT. DCPIA - Discharge Planning Initial Assessment Updated by [email or web address]: Mojgan Ríos on 04/13/19 6:27 pm * Is the patient Alert and Oriented? Yes * PCP Devante Underwood in [place], [place] * Pharmacy [facility] in [place] * Preadmission Environment Home with Family * ADLs Partial Dependent * Partial ADLs (Assistance needed) Bathing Medication Management * Equipment Bedside Commode Cane Nebulizer Oxygen Rolling Walker Shower Chair Walker * Other Equipment Patient has DME from [employer] oxygen at night, walker, wheelchair, nebulizer, bedside commode * List name and contact numbers for known caregivers / representatives who currently or will assist patient after discharge: Kalani jonas * Verbal permission to speak to the caregivers and representatives has been obtained from the patient. Yes * Community resources currently utilized Home Health * Please name any agencies selected above. [facility] in [place] * Additional services required to return to the preadmission environment? Yes * Can the patient safely return to the preadmission environment? Yes * Has this patient been hospitalized within the prior 30 days at any hospital? No Last DP export: 04/13/19 5:29 p Patient Name: AMISHA CORTEZ Page [id number] at 1843 All edits/amendments must be made on the electronic document DICTATION DATE: 04/13/191842 EDGE POLISHER: JIMENA 04/13/191842 RPT#: [id number] DC DATE:04/13/19 STATUS: DIS IN [facility] [address] [place] [address] END OF REPORT
--- NOTE | 2019-04-14 09:57 | MORECARE ---
CASE MANAGEMENT DISCHARGE SUMMARY PATIENT: AMISHA CORTEZ UNIT: [id number] ADM DATE: 04/12/19 AGE: 63 : 55 SEX: F ROOM/BED: D.9446 AUTHOR: RICK,DOC PHYSICIAN: REFERRING PHYSICIAN: THANIA MAY MD DATE OF SERVICE: 04/14/19 Discharge Plan Patient Name: AMISHA CORTEZ Facility: [facility]:[place] : 1955 Planned Disposition: Home with Home Health Anticipated Discharge Date: 04/13/19 Discharge Date: 04/13/2019 Expected LOS: 1 Initial Reviewer: [email or web address] Initial Review Date: 04/12/2019 Generated: 04/14/19 10:56 am Comments DCP- Discharge Planning Updated by [email or web address]: Mojgan Ríos on 04/13/19 5:[address] 1800 CM ADVISED THAT THE PATIENT WAS BEING DISCHARGED TO HOME W/ HER DAUGHTER THIS PM. DISCHARGE PAPERWORK IS BEING PREPARED. CM WENT TO THE ROOM. PATIENT WAS IN THE BATHROOM. SHE ALLOWED THE CM TO SPEAK WITH HER DAUGHTER. THE DAUGHTER, KALANI, STATES HER MOTHER LIVES WITH HER IN [place]. SHE IS PROVIDING TRANSPORTATION TO HOME. CM ASK IF SHE WAS RECEIVING ANY HOME HEALTH SERVICES. THE DAUGHTER STATES SHE HAS [facility] FOR SERVICES. SHE WAS RECEIVING A HOME HEALTH AIDE FROM [facility] BUT THE DAUGHTER JUST COMPLETED THE PAPERWORK FOR A SUPPLY AIDE [facility] [address]. PATIENT HAS DME FROM [facility] [place] [facility], BSC, WALKER, WHEELCHAIR, NEBULIZER PCP- [facility]WOOD IN [facility] IN [place] CM OBTAINED SIGNATURE FOR HOME HEALTH TO CONTINUE W/ [facility] IN [place]. ONE SIGNED COPY TO THE DAUGHTER AND ONE SIGNED COPY TO THE HARD COVER CHART. THE ECHO REPORT IS THE ONLY MD NOTE AT THIS TIME.PATIENT WAS A DIRECT ADMIT. CM WILL CONTACT [facility] IN THE AM AND FAX DISCHARGE PAPERWORK. THE ONLY QUESTION THE DAUGHTER HAD WAS WHETHER HER MOTHER SHOULD CONTINUE THE FLUID RESTRICTION. THE NURSE DID NOT KNOW. CM ADVISED THE DTR TO ASK THE MD WHEN SHE CALLS FOR THE F/U APPT. DCPIA - Discharge Planning Initial Assessment Updated by [email or web address]: Mojgan Ríos on 04/13/19 6:27 pm * Is the patient Alert and Oriented? Yes * PCP [facility] Underwood in [place], [place] * Pharmacy [facility] in [place] * Preadmission Environment Home with Family * ADLs Partial Dependent * Partial ADLs (Assistance needed) Bathing Medication Management * Equipment Bedside Commode Cane Nebulizer Oxygen Rolling Walker Shower Chair Walker * Other Equipment Patient has DME from [employer] oxygen at night, walker, wheelchair, nebulizer, bedside commode * List name and contact numbers for known caregivers / representatives who currently or will assist patient after discharge: Kalani jonas * Verbal permission to speak to the caregivers and representatives has been obtained from the patient. Yes * Community resources currently utilized Home Health * Please name any agencies selected above. [facility] in [place] * Additional services required to return to the preadmission environment? Yes * Can the patient safely return to the preadmission environment? Yes * Has this patient been hospitalized within the prior 30 days at any hospital? No Last DP export: 04/13/19 5:43 p Patient Name: AMISHA CORTEZ Page [id number] at 0957 All edits/amendments must be made on the electronic document DICTATION DATE: 04/14/19955 RECREATION SPECIALIST: JIMENA 04/14/1956 RPT#: [id number] DC DATE:04/13/19 STATUS: DIS IN [facility] [address] [place] [address] END OF REPORT
== END 2019-04-13 18:37 | disposition home health service (06) | DRG 311 ==
LOC: D.M2 15:48
PROVIDERS: ADMIT Internal Medicine Interventional Cardiology; ATTEND Internal Medicine Interventional Cardiology
DX: I20.9 Angina pectoris, unspecified (principal); I50.9 Heart failure, unspecified; I48.0 Paroxysmal atrial fibrillation; E78.5 Hyperlipidemia, unspecified; E11.9 Type 2 diabetes mellitus without complications; R06.02 Shortness of breath